=== PATIENT | male | born 1985 | race Two or more races ===

== ENCOUNTER 2022-01-07 08:15 | Inpatient (IN) | payer BC ==
[~2022-01-07] VITALS: Ht 167.6 cm; Wt 64.2 kg
[2022-01-07 09:25] LABS: Basophils # (auto) 0 10 ^3/uL (0-0.2); Basophils % (auto) 0.7 % (0.0-2.0); Eosinophils # (auto) 0.1 10 ^3/uL (0-0.8); Eosinophils % (auto) 2.1 % (0.0-7.0); Hematocrit 45.4 % (41.0-53.0); Hemoglobin 15.6 g/dL (13.5-17.5); Lymphocytes # (auto) 1.5 10 ^3/uL (0.4-5.4); Lymphocytes % (auto) 21.4 % (10.0-50.0); Mean Corpuscular Hemoglobin 30.2 pg (28.0-32.0); Mean Corpuscular Hgb Conc. 34.4 g/dL (32.0-36.0); Mean Corpuscular Volume 87.9 fL (80.0-100.0); Monocytes # (auto) 0.8 10 ^3/uL (0-1.3); Monocytes % (auto) 10.8 % (0.0-12.0); Neutrophils # (auto) 4.6 10 ^3/uL (1.6-8.6); Nucleated Red Blood Cells % 0.1 %; Red Blood Cells 5.17 10^6/uL (4.5-5.90); Red Cell Distribution Width 13.3 % (11.8-14.3)
[2022-01-07 09:38] LABS: Potassium 4.6 mmol/L (3.5-5.1)
[2022-01-07 09:46] LABS: Albumin 4.2 g/dL (3.4-5.0); BUN/Creatinine Ratio 12.6; Bilirubin, Total 0.3 mg/dL (0.2-1.0); Calcium 9.2 mg/dL (8.5-10.1)
[2022-01-07] MEDS ORDERED: CLOPIDOGREL BISULFATE 75 MG TAB PO ONE (14:00)
[2022-01-07] MEDS ORDERED: ASPirin 325 MG TAB PO ONE (14:00)
[2022-01-07] MEDS ORDERED: NITROGLYCERIN 0.4 MG SL TAB SL PRN (17:15)
[2022-01-07] MEDS ORDERED: SODIUM CHLORIDE 0.9% 1,000 ML IV ONE (17:15)
[2022-01-07] MEDS ORDERED: NITROGLYCERIN 0.4MG/HR TOPICAL PATCH TD ONE (17:15)
[2022-01-07] MEDS ORDERED: MORPHINE SULFATE INJECTION 2 MG/ML SYRG IV PRN (17:15)
[2022-01-07 18:04] LABS: Urine Bacteria NONE SEEN /hpf (None Seen); Urine Blood Negative /uL (Negative); Urine Mucus FEW (None Seen); Urine Specific Gravity 1.017 (1.001-1.035); Urine WBC <1 /hpf (0 - 3)
[2022-01-07 18:17] LABS: Cholesterol 245 mg/dL (< 200)
[2022-01-07 18:19] LABS: HDL Cholesterol 43 mg/dL (40-59); LDL Cholesterol 149 mg/dL (< 100); Triglycerides 228 mg/dL (< 150)
[2022-01-07 18:34] LABS: Alcohol, Urine < 3.0 mg/dL (0-10); Amphetamine Screen, Urine NEGATIVE (NEGATIVE); Barbiturate Scree,Urine NEGATIVE (NEGATIVE); Benzodiazephine Screen, Urine NEGATIVE (NEGATIVE); Cannabinoid Screen, Urine NEGATIVE (NEGATIVE); Cocaine Screen, Urine NEGATIVE (NEGATIVE); Opiate Scree,Urine NEGATIVE (NEGATIVE); Phencyclidine Screen, Urine NEGATIVE (NEGATIVE)
[2022-01-07] MEDS: SOD CHL 0.45% 1,000 ML IV SCH (20:40)
[2022-01-07 22:00] VITALS: BP 135/88
[2022-01-08 05:00] VITALS: BP 125/87
[2022-01-08] MEDS: SOD CHL 0.45% 1,000 ML IV SCH (05:34)
[2022-01-08 08:00] VITALS: BP 152/79
[2022-01-08] MEDS: ENOXAPARIN SOD 40 MG/0.4 ML SYRINGE SC SCH (08:06)
[2022-01-08 09:00] VITALS: BP 141/83
[2022-01-08] MEDS ORDERED: NITROGLYCERIN 0.4MG/HR TOPICAL PATCH TD SCH (10:00)
[2022-01-08] MEDS: ACETAMINOPHEN 325 MG TAB PO PRN ×2 (10:58→21:06)
[2022-01-08] MEDS ORDERED: ONDANSETRON HCL 4 MG/2 ML VIAL IV PRN (11:30)
[2022-01-08] MEDS ORDERED: ASPirin 325 MG TAB PO ONE (11:45)
[2022-01-08 13:00] VITALS: BP 118/76
[2022-01-08] MEDS ORDERED: MIDAZOLAM HCL 2MG/2ML 2ml VIAL (1mg/ml) ONE (15:38)
[2022-01-08] MEDS ORDERED: ANGIOMAX 250 MG VIAL IV ONE (15:38)
[2022-01-08] MEDS ORDERED: fentaNYL CITRATE 100 MCG/2 ML VL ONE (15:38)
[2022-01-08] MEDS ORDERED: HEPARIN SODIUM (PORCINE) 5000 UNITS/ML 1ML VIAL ONE (15:39)
[2022-01-08] MEDS ORDERED: LIDOCAINE 2%HCL (LOCAL ANESTH.) INJ 10ml MDV ONE (15:39)
[2022-01-08] MEDS ORDERED: VERAPAMIL 2.5MG/ML INJ 2ML VIAL IV ONE (15:39)
[2022-01-08] MEDS ORDERED: SODIUM CHL 0.9% 0 ML ONE (15:39)
[2022-01-08] MEDS ORDERED: IOHEXOL 350 MG/ML 100ML IJ ONE (15:40)
[2022-01-08 18:09] VITALS: BP 118/63
[2022-01-08 22:00] VITALS: BP 132/79
[2022-01-08] MEDS ORDERED: ATORVASTATIN 20 MG TAB PO SCH ×2 (22:00)
[2022-01-09 05:00] VITALS: BP 114/75
[2022-01-09 08:00] VITALS: BP 98/58
[2022-01-09 09:00] VITALS: BP 117/74
[2022-01-09] MEDS: ENOXAPARIN SOD 40 MG/0.4 ML SYRINGE SC SCH (10:00)
[2022-01-09] MEDS ORDERED: PANTOPRAZOLE 40 MG TAB PO SCH (10:00)
[2022-01-09] MEDS ORDERED: ENALAPRIL MALEATE 10 MG TAB PO SCH (10:00)
[2022-01-09] MEDS ORDERED: ASPirin 81 mg TAB PO SCH (10:00)
[2022-01-09 13:00] VITALS: BP 115/59
[2022-01-09] MEDS ORDERED: ATOR20TA50 PO (13:10)
[2022-01-09 16:51] VITALS: BP 110/54
== END 2022-01-09 16:55 | disposition home or self-care (01) | DRG 287 ==
LOC: ER 08:31 → TELE 17:11 → TELE-CENTR 21:20
PROVIDERS: ADMIT Registered Nurse; ATTEND Hospitalist
PROC: B211YZZ Fluoroscopy of Multiple Coronary Arteries using Other Contrast (ICD-10-PCS; principal; 2022-01-08)
DX: I25.10 Atherosclerotic heart disease of native coronary artery without angina pectoris (principal); E78.00 Pure hypercholesterolemia, unspecified; I10 Essential (primary) hypertension; Z82.49 Family history of ischemic heart disease and other diseases of the circulatory system; Z20.822 Contact with and (suspected) exposure to COVID-19
CPT/HCPCS: 36415; 71045; 80053; 80061; 80307; 81001; 83036; 84439; 84443; 84484; 85025; 85379; 85652; 86141; 86850; 86900; 86901; 93005; 93306; 96360; 99152; 99291; G0378; J2001; J2250